=== PATIENT | male | born 2000 | race Caucasian/White ===

== ENCOUNTER 2021-09-27 08:14 | Day surgery (SDC) | payer OTHER ==
[~2021-09-27] VITALS: Ht 180.3 cm; Wt 75.0 kg
[2021-09-27] VITALS (10 sets, daily range): BP systolic 114–141; BP diastolic 58–84
--- NOTE | 2021-09-27 07:20 | NUR ---
PATIENT TO ROOM AMBULATORY. CONSENT OBTAINED. VITAL SIGNS OBTAINED. DR ELIZONDO NOTIFIED. NEW ORDERS RECEIVED. ADMISSION ASSESSMENT COMPLETED AT THIS TIME. IV ESTABLISHED. ORIENTED PATIENT TO ROOM AND UNIT. CALL LIGHT IN REACH. WILL CONTINUE TO MONITOR.
[2021-09-27 08:59] LABS: HEMATOCRIT 54.1 % (39.0-50.0); HEMOGLOBIN 17.3 g/dl (14.0-18.0); IMMATURE GRANULOCYTES 0.2 % (0.0-5.0); MEAN CELL VOLUME 86.8 fL CALC (80.0-100.0); MEAN CORPUSCULAR HGB 27.8 pG CALC (26.0-32.0); NEUT# 2.88 thou/uL (1.82-7.42); RED BLOOD COUNT 6.23 mill/uL (4.70-6.10); RED CELL DISTRI WIDTH 12.5 % (11.5-15.5)
[2021-09-27 09:15] LABS: ALBUMIN 4.4 g/dL (3.2-5.0); ALKALINE PHOSPHATASE 61 u/l (38-126); ANION GAP 15 (6-22 (CALC)); BILIRUBIN, TOTAL 0.5 mg/dL (0.0-1.4); BUN 14 mg/dL (9-20); BUN/CREATININE RATIO 13 (12-20 (CALC)); CARBON DIOXIDE 27 mmol/l (22-30); CHLORIDE 99 mmol/l (95-108); GFR > 60 ML/MIN (>=60 (CALC)); GFR FOR AFR.AMER. > 60 ML/MIN (>=60 (CALC)); POTASSIUM 3.8 mmol/l (3.5-5.1); SGOT/AST 22 u/l (17-59); SODIUM 138 mmol/l (137-146); TOTAL PROTEIN 7.4 g/dL (6.3-8.2)
[2021-09-27] MEDS ORDERED: CLONIDINE0.1 MG PO (10:47)
[2021-09-27] MEDS ORDERED: KLONOPIN0.5 MG PO (10:49)
[2021-09-27] MEDS ORDERED: NALTREXONE50 MG PO (10:49)
--- NOTE | 2021-09-27 16:48 | NUR ---
PATIENT CAME FROM THE TRAUMA AN[facility] PROCEDURE VIA BED BY THANIA DON AND REPORT RECEIVED FROM HER. PATIENT IS SLEEPING WITH O2 AT 2L VIA NC. NO DISTRESS NOTED. BED ALARM IN PLACE.
--- NOTE | 2021-09-27 19:07 | NUR ---
RECEIVED REPORT FROM NURSE TERRELL, PATIENT RESTING IN BED, LEFT SIDE LYING POSITION, BREATHING UNLABORED, BED LOSW POSITION, BED ALARM IN PLACE.
--- NOTE | 2021-09-27 20:19 | NUR ---
PATIENT ALERT, LETHARGIC, STATED WEAK, ASSISTED WITH HIS URINAL VOIDED 500CC CLEAR URINE, WITH ONGOING IV LR @ 100CC/HR INFUSING WELL ON RT HAND G 18, BREATHING EVEN UNLABORED, CALM AT THIS TIME,SLIGHT NAUSEA, PRN PHENERGAN GIVEM, SCOPOLAMINE BEHIND RT EAR. WILL CONTINUE TO MONITOR.
--- NOTE | 2021-09-27 20:30 | NUR ---
PRN PHENERGAN GIVEN AT THIS TIME, CALL LIGHT AT REACH.
--- NOTE | 2021-09-28 00:36 | NUR ---
PATIENT LITTLE RESTLESS, TOSSING IN BED, DUE CLONIPIN GIVEN BREATHING UNLABORED, CALL LIGHT AT REACH.
[2021-09-28 04:00] VITALS: BP 121/57
--- NOTE | 2021-09-28 04:48 | NUR ---
PATIENT RESTING IN BED, STILL DROWSY ASKING " WHEN AM I GOING DOWN FOR ANR?, EDUCATED THAT THEY ALREADY BROUGHT YOU UP ABOUT 1610 YESTREDAY. PATIENT CLEANED, NEW BRIEF ON, CALL LIGHT AT REACH.
[2021-09-28 05:56] LABS: HEMATOCRIT 51.1 % (39.0-50.0); HEMOGLOBIN 16.6 g/dl (14.0-18.0); IMMATURE GRANULOCYTES 0.1 % (0.0-5.0); MEAN CELL VOLUME 86.2 fL CALC (80.0-100.0); MEAN CORPUSCULAR HGB CONC 32.5 g/dL CAL (32.0-36.0); NEUT# 6.03 thou/uL (1.82-7.42); RED BLOOD COUNT 5.93 mill/uL (4.70-6.10); RED CELL DISTRI WIDTH 12.7 % (11.5-15.5)
[2021-09-28 06:30] VITALS: BP 113/65
[2021-09-28 06:30] LABS: ALKALINE PHOSPHATASE 59 u/l (38-126); ANION GAP 17 (6-22 (CALC)); BILIRUBIN, TOTAL 0.7 mg/dL (0.0-1.4); BUN 15 mg/dL (9-20); BUN/CREATININE RATIO 15 (12-20 (CALC)); CARBON DIOXIDE 22 mmol/l (22-30); CHLORIDE 103 mmol/l (95-108); GFR > 60 ML/MIN (>=60 (CALC)); GFR FOR AFR.AMER. > 60 ML/MIN (>=60 (CALC)); MAGNESIUM 1.8 mg/dL (1.6-2.3); POTASSIUM 4.4 mmol/l (3.5-5.1); SGOT/AST 19 u/l (17-59); SODIUM 137 mmol/l (137-146); TOTAL PROTEIN 6.8 g/dL (6.3-8.2)
--- NOTE | 2021-09-28 08:39 | NUR ---
PT SLEEPING AT THIS TIME. BREATHING IS EVEN AND UNLABORED. IVF INFUSING PER EMAR. FALL/SAFTEY PRECAUTIONS IN PLACE. CALL LIGHT WITHIN REACH. IV 18G RH, FLUSHED WITH NO RESISTANCE.
[2021-09-28 10:53] VITALS: BP 107/59
--- NOTE | 2021-09-28 11:10 | NUR ---
PT AWAKE A&OX3. STATES NO PAIN N/V JUST FEELING TIRED. ASSESSMENT ALLOWED AT THIS TIME. FALL/PRECAUTION IN PLACE. CALL LIGHT WITHIN REACH. IV PATENT.
--- NOTE | 2021-09-28 12:27 | NUR ---
PT RESTING IN BED. STATES NO PAIN AT THIS TIME. IV PATENT. PT HAS SHOWERED AND HAD A LITTLE AMOUNT OF BREAKFAST. STILL NAUSEAUS BUT STATES NOT BAD BEFORE. WAITING TO TALK TO MR. CONLEY. FALL PRECAUTIONS IN PLACE. CALL LIGHT WITHIN REACH
--- NOTE | 2021-09-28 12:30 | NUR ---
PT WATCHING TV IN BED AT THIS TIME. PT HAS SHOWERED, LUNCH IS AT BEDSIDE WITHIN REACH. STATES NOT WANTING TO EAT AT THE MOMENT. STATES NO PAIN. IV PATENT. FALL/SAFTEY PRECAUTIONS IN PLACE. CALL LIGHT WITHIN REACH.
[2021-09-28 15:13] VITALS: BP 105/59
--- NOTE | 2021-09-28 15:45 | NUR ---
Discharge instructions given. Patient verbalizes understanding of same. Discharged in stable condition via Wheelchair to Home with staff. All belongings sent with pt. RH 18G REMOVED CATHETER FULLY INTACT. PT LEFT VIA WC WITH ANR STAFF MICHELLE.
== END 2021-09-28 15:45 | disposition home or self-care (01) | DRG 897 ==
LOC: ANR 08:14 → MS2 08:14 → ANR 16:30
PROVIDERS: ATTEND Anesthesiology
DX: F11.20 Opioid dependence, uncomplicated (principal)
CPT/HCPCS: J2060; J2354